=== PATIENT | female | born 1995 | race American Indian/Alaskan Native ===

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

== ENCOUNTER 2020-06-21 09:03 | Inpatient (IN) | payer MEDICAID ==
--- NOTE | 2020-06-08 11:44 | History and Physical Report ---
History of Present Illness Date of examination: 06/08/20 Chief complaint: repeat c/s History of present illness: 24 yo at 39w1d, AKBAR 06/27/20, c/b prior c/s x 1, Hx LSIL pap presenting for scheduled repeat c/s. Denies labor complaints or PIH symptoms. +FM. 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) Family/Genetic History: none Social history: no significant social history - Obstetrical History Expected Date of Delivery: 06/27/20 Actual Gestation: 37 Week(s) 2 Day(s) : 3 Para: 1 Hx # Term Pregnancies: 1 Spontaneous Abortions: 1 Number of Living Children: 1 Medications and Allergies Allergies Allergy/AdvReac Type Severity Reaction Status Date / Time Unable to Assess Allergy Unverified 08/23/16 05:22 Review of Systems All systems: negative (expect HPI) - Physical Exam Abdomen: Positive: normal appearance, normal bowel sounds Uterus: Positive: enlarged (gravid) - Obstetrical FHR: category 1 Uterine Contraction Monitor Mode: External Uterine Contraction Pattern: Absent Results All other labs normal. Assessment and Plan - Patient Problems (1) H/O: Status: Acute Plan to address problem: To OR for repeat section --Consented in the chart --Questions solicited and answered --GBS neg
[~2020-06-21 09:03] MED LIST: FAMOTIDINE 20 MG/2 ML INJ IV SCH
[2020-06-21] MEDS ORDERED: ceFAZolin/Water 2 GM/20 ML 2 GM/20 ML SYRINGE IV NR ×2 (09:30→12:00)
[2020-06-21] MEDS ORDERED: LACTATED RINGERS 1,000 ML IV SCH ×2 (09:30→11:30)
[2020-06-21] MEDS ORDERED: METOCLOPRAMIDE 10 MG/2 ML INJ IV SCH ×2 (09:30→12:19)
[2020-06-21] MEDS ORDERED: OXYTOCIN DRIP 30 UNITS/500 ML BAG IV SCH ×3 (09:30→13:00)
[2020-06-21] MEDS ORDERED: BICITRA ORAL LIQD 30ML PO SCH ×2 (09:30→11:19)
--- NOTE | 2020-06-21 10:23 | Anesthesia Consultation ---
Anesthesia Consult and Med Hx Date of service: 06/21/20 - Airway Anesthetic Teeth Evaluation: Good (some uneven teeth on the bottom) ROM Head & Neck: Adequate Mental/Hyoid Distance: Adequate Mallampati Class: Class II Intubation Access Assessment: Probably Good - Pre-Operative Health Status ASA Pre-Surgery Classification: ASA2 Proposed Anesthetic Plan: Epidural, Spinal
--- NOTE | 2020-06-21 10:23 | Anesthesia Day of Surgery ---
Anesthesia Day of Surgery - Day of Surgery Patient Examined: Yes Patient H&P Reviewed: Yes Patient is NPO: Yes
[2020-06-21 10:29] LABS: Basophils % (Auto) 0.3 % (0.0-1.8); Eosinophils % (Auto) 0.6 % (0.0-4.3); Hematocrit 33.9 % (30.3-42.9); Hemoglobin 11.7 gm/dl (10.1-14.3); Lymphocytes # (Auto) 1.8 K/mm3 (1.2-5.4); Lymphocytes % (Auto) 34.5 % (13.4-35.0); Mean Corpuscular HGB Conc 35 % (30-34); Mean Corpuscular Volume 88 fl (79-97); Monocytes # (Auto) 0.3 K/mm3 (0.0-0.8); Monocytes % (Auto) 5.9 % (0.0-7.3); Platelet Count 160 K/mm3 (140-440); Red Blood Count 3.87 M/mm3 (3.65-5.03); Red Cell Distribution Width 14.2 % (13.2-15.2)
[2020-06-21] MEDS ORDERED: ONDANSETRON 4 MG/2 ML INJ IV PRN (11:00)
[2020-06-21] MEDS ORDERED: HYDROmorphone 1 MG/1 ML INJ IV PRN (11:00)
[2020-06-21] MEDS ORDERED: PROMETHAZINE 25 MG TAB PO PRN (11:00)
[2020-06-21] MEDS ORDERED: PROMETHAZINE 25 MG RECT SUPP PR PRN (11:00)
[2020-06-21] MEDS ORDERED: NALOXONE 0.4 MG/1 ML INJ IV PRN ×2 (11:00→12:49)
[2020-06-21] MEDS ORDERED: FAMOTIDINE 20 MG/2 ML INJ IV SCH (11:19)
--- NOTE | 2020-06-21 11:26 | History and Physical Report ---
History of Present Illness Date of examination: 06/21/20 Date of admission: 06/21/20 09:03 Chief complaint: HERE FOR REPEAT C/S. History of present illness: The patient is a 24-year-old -[place] female who is a 3 para 1-0-1-1. Last menstrual period 10/04/2019 EDC 06/27/2020 she has received the flu vaccine her GBS is negative on antibiotics of breast for the past S improve she does have a history of low-grade AMY on Pap she had a previous section for distress. She has had at least obtain visits at office. Her blood type is A+ antibody screen was negative hematocrit was 37.6% rubella was immune Pap smear was ill AMY hepatitis B was negative HIV was negative varicella was immune platelet was 221,000 vitamin D was 240 Chlamydia and gonorrhea tests were negative he had ultrasound done at 17 weeks start Keppra screen was negative cystic fibrosis test was negative he had a repeat ultrasound at 21.1 weeks with Glucola screen was normal her repeat chlamydia at 36 weeks was negative repeat GC was also negative and her group B strep test was negative trichomonas test was negative she has been taking Keflex Zofran vitamin pills and promethazine as needed Past History Past Medical History: no pertinent history 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: section (x1), 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) Family/Genetic History: none, diabetes Social history: single - Obstetrical History Expected Date of Delivery: 06/27/20 Actual Gestation: 39 Week(s) 1 Day(s) : 3 Para: 1 Hx # Term Pregnancies: 1 Number of Pregnancies: 0 Spontaneous Abortions: 1 Induced : 0 Medications and Allergies Allergies Allergy/AdvReac Type Severity Reaction Status Date / Time No Known Allergies Allergy Unverified 06/21/20 10:49 Active Meds: Active Medications Citric Acid/Sodium Citrate (Bicitra Oral Liqd 30ml) 30 ml PO ONCE ANICETO Stop: 06/21/20 17:00 Famotidine (Famotidine 20 Mg/2 Ml Inj) 20 mg IV ONCE ANICETO Stop: 06/21/20 18:00 Hydromorphone HCl (Hydromorphone 1 Mg/1 Ml Inj) 0.5 mg IV Q4H PRN PRN Reason: breakthrough pain > 7/10 Lactated Ringer's (Lactated Ringers) 1,000 mls @ 2,250 mls/hr IV PREOP ANICETO Stop: 06/22/20 09:57 Oxytocin/Sodium Chloride (Pitocin/Ns 30 Unit/500ml) 30 units in 500 mls @ 0 mls/hr IV TITR ANICETO; Protocol Cefazolin Sodium (Ancef/Sterile Water 2 Gm/20 Ml) 2 gm in 20 mls @ 80 mls/hr IV PREOP NR; Protocol Stop: 06/21/20 17:00 Metoclopramide HCl (Metoclopramide 10 Mg/2 Ml Inj) 10 mg IV ONCE ANICETO Stop: 06/21/20 17:00 Naloxone HCl (Naloxone 0.4 Mg/1 Ml Inj) 0.2 mg IV Q2MIN PRN PRN Reason: Res Rate </= 8 or 02 SAT < 92% Ondansetron HCl (Ondansetron 4 Mg/2 Ml Inj) 4 mg IV Q8H PRN PRN Reason: Nausea And Vomiting Promethazine HCl (Promethazine 25 Mg Tab) 25 mg PO Q6H PRN PRN Reason: Nausea And Vomiting Promethazine HCl (Promethazine 25 Mg Rect Supp) 25 mg RI Q6H PRN PRN Reason: Nausea And Vomiting Sodium Chloride (Sodium Chloride 0.9% 10 Ml Flush Syringe) 10 ml IV PRN PRN PRN Reason: flush Review of Systems All systems: negative - Vital Signs Vital signs: Vital Signs Pulse BP 90 107/66 06/21/20 09:33 06/21/20 09:33 Temp Pulse Resp BP Pulse Ox 98.3 F 102 H 18 107/66 98 06/21/20 09:34 06/21/20 11:16 06/21/20 09:34 06/21/20 09:33 06/21/20 11:16 - Physical Exam Breasts: Cardiovascular: Regular rate, Normal S1, Normal S2 Lungs: Positive: Clear to auscultation Abdomen: Positive: normal appearance, soft, normal bowel sounds. Negative: distention, tenderness Genitourinary (Female): Positive: normal external genitalia Vulva: both: normal Vagina: Positive: normal moisture. Negative: discharge Cervix: Negative: lesion, discharge Uterus: Positive: normal size, enlarged, normal contour Adnexa: both: normal Anus/Rectum: Positive: normal perianal skin, heme negative. Negative: rectal mass, hemorrhoids Extremities: Deep Tendon Reflex Grade: Dull/Diminished +1 - Obstetrical FHR: auscultation normal, category 1 Uterine Contraction Monitor Mode: External Uterine Contraction Pattern: Absent Results Result Diagrams: 06/21/20 09:59 Abnormal lab results 06/21/20 Range/Units 09:59 MCHC 35 H (30-34) % All other labs normal. Assessment and Plan Previous section at 39 weeks. Plan repeat low transverse section.
[2020-06-21] MEDS ORDERED: PHENYLEPHRINE/NS 1,000 MCG/10 ML SYRINGE (OR USE) IV ONE (12:30)
[2020-06-21] MEDS ORDERED: SODIUM CHLORIDE 0.9% 100 ML ONE (12:37)
[2020-06-21] MEDS ORDERED: dexAMETHasone 20 MG/5 ML VIAL ONE (12:37)
[2020-06-21] MEDS ORDERED: BUPIVACAINE/PF (0.5%) 5 MG/1 ML 30 ML VIAL INFILTRATI ONE (12:37)
[2020-06-21] MEDS ORDERED: ONDANSETRON 4 MG/2 ML INJ ONE (12:48)
[2020-06-21] MEDS ORDERED: LANOLIN/ZINC/DIMETHICONE (LANSINOH) 7 GM TP PRN (12:49)
[2020-06-21] MEDS ORDERED: WITCH HAZEL/ GLYCERIN PAD TP PRN (12:49)
--- NOTE | 2020-06-21 12:57 | Procedure Note ---
Date of procedure: 06/21/20 Pre-op diagnosis: previous c/s Post-op diagnosis: same Procedure: The patient was taken to the operatory and given a spinal anesthetic adequate enough for the procedure she had indwelling Garcia catheter placed. She was then prepped and draped in the usual manner. Because she had a keloid scar we started our initial incision circumferentially around the keloid scar to remove the keloid scar over her skin. Subsequently we entered the abdominal cavity a natomically vesicouterine peritoneum was repaired removed with Metzenbaums and scissors a low transverse incision made in lower uterine segment with a scalpel because the tightness of the incision we extended the uterine incision with scissors and extended the rectus muscles with scissors subsequently we delivered the vertex with the help of a [place]wi. The fetus was removed from the uterus oropharynx was suctioned fetus passed off table in stable cord was doubly clamped fetus passed off the table to the nurse in stable condition cord blood was obtained cord blood was not obtained excuse me. Uterus was cleaned debris membranes and tissue uterus and delivered extra-abdominal uterus and repaired in 2 layers first layer was in the deep myometrium is a running locking #1 Vicryl subsequently the superficial layer of the myometrium was repaired with the same suture using running locked #1 Vicryl tubes and ovaries appeared to be normal using drop back into the abdominal cavity. Gutters was cleaned of debris membranes and tissue and blood all instruments removed from abdominal cavity instrument count needle lap and sponge count was correct anterior abdominal peritoneum was repaired running 2-0 chromic the rectus muscles were reapproximated using running locking #2-0 chromic. The fascia repaired with a running locking #0 Vicryl subcutaneous is repaired with running 2-0 Vicryl the skin was repaired with a Isaias needle subcuticular 4-0 Vicryl in a continuous fashion this area was hemostatic and it was a nice reapproximation. We then placed Dermabond over the incision. The patient tolerated procedure well she was then returned to recovery room in stable condition end of operative note on the patient. Anesthesia: spinal Estimated blood loss: other (600) Pathology: none Specimen disposition: discarded Condition: stable Disposition: PACU
--- NOTE | 2020-06-21 13:27 | Progress Note ---
Spinal Anesthesia Block - Spinal Anesthesia Block Start Time: 11:45 Stop Time: 11:50 Performed by:: RICO TRINIDAD Procedure: Patient IDed, H&P reviewed, all questions and concerns were answered, and consent was signed. Timeout was performed at bedside. Patient in sitting position. Sterile prep and drape was performed. [3] ml of 1% lidocaine skin wheal at L[3]- L [4]. Needle introducer advanced. 25 gauge spinal needle advanced. Clear, free flowing CSF. negative blood, negative paresthesia. Spinal dose given. All needles removed. Patient tolerated procedure.
--- NOTE | 2020-06-21 13:29 | Progress Note ---
Subjective Date of service: 06/21/20 Objective - Constitutional Vitals: Vital Signs - 12hr 06/21/20 06/21/20 06/21/20 09:33 09:34 09:35 Temperature 98.3 F Pulse Rate 90 100 H Respiratory 18 Rate Blood Pressure 107/66 O2 Sat by Pulse 97 Oximetry 06/21/20 06/21/20 06/21/20 09:40 09:45 09:50 Temperature Pulse Rate 93 H 93 H 86 Respiratory Rate Blood Pressure O2 Sat by Pulse 97 98 98 Oximetry 06/21/20 06/21/20 06/21/20 09:55 10:00 10:05 Temperature Pulse Rate 81 90 100 H Respiratory Rate Blood Pressure O2 Sat by Pulse 98 99 98 Oximetry 06/21/20 06/21/20 06/21/20 10:10 10:16 10:21 Temperature Pulse Rate 90 93 H 100 H Respiratory Rate Blood Pressure O2 Sat by Pulse 98 98 97 Oximetry 06/21/20 06/21/20 06/21/20 10:26 10:31 10:36 Temperature Pulse Rate 80 96 H 91 H Respiratory Rate Blood Pressure O2 Sat by Pulse 98 97 98 Oximetry 06/21/20 06/21/20 06/21/20 10:41 10:46 10:51 Temperature Pulse Rate 95 H 95 H 94 H Respiratory Rate Blood Pressure O2 Sat by Pulse 98 98 98 Oximetry 06/21/20 06/21/20 06/21/20 10:56 11:01 11:06 Temperature Pulse Rate 89 98 H 89 Respiratory Rate Blood Pressure O2 Sat by Pulse 98 97 98 Oximetry 06/21/20 06/21/20 06/21/20 11:11 11:16 11:21 Temperature Pulse Rate 82 102 H 99 H Respiratory Rate Blood Pressure O2 Sat by Pulse 98 98 97 Oximetry 06/21/20 06/21/20 11:26 12:36 Temperature Pulse Rate 94 H 105 H Respiratory Rate Blood Pressure 90/59 O2 Sat by Pulse 97 Oximetry - Labs CBC & Chem 7: 06/22/20 01:37 Labs: Abnormal lab results 06/21/20 Range/Units 09:59 MCHC 35 H (30-34) % Regional Anesthesia Block - Regional Anesthesia Block Start Time: 13:18 Stop Time: 13:22 Performed By:: CHARISSA GOMEZ Procedure: Patient consented for TAP block for post surgical pain management. Patient identified, monitors placed, and time out performed. TAP identified bilaterally via ultrasound. Skin prepped bilaterally with [chlorhexidine] and [22g stimuplex] needle advanced to the TAP. [Marcaine 0.22% 35ml] injected under ultrasound guidance on the [left] side. [Marcaine 0.22% 35ml] injected under ultrasound guidance on the [right] side. Negative aspiration every 5mL, No change in heart rate or rhythm. Patient tolerated the procedure well. No apparent complications seen.
[2020-06-21 17:51] LABS: Basophils % (Auto) 0.1 % (0.0-1.8); Hematocrit 32.3 % (30.3-42.9); Hemoglobin 11.1 gm/dl (10.1-14.3); Lymphocytes # (Auto) 0.9 K/mm3 (1.2-5.4); Lymphocytes % (Auto) 8.7 % (13.4-35.0); Mean Corpuscular HGB Conc 34 % (30-34); Mean Corpuscular Volume 89 fl (79-97); Monocytes # (Auto) 0.3 K/mm3 (0.0-0.8); Monocytes % (Auto) 2.3 % (0.0-7.3); Platelet Count 157 K/mm3 (140-440); Red Blood Count 3.62 M/mm3 (3.65-5.03); Red Cell Distribution Width 14.5 % (13.2-15.2)
[2020-06-21] MEDS ORDERED: IBUPROFEN 600 MG TAB PO SCH (18:00)
[2020-06-21] MEDS: KETOROLAC 30 MG/1 ML INJ IV PRN (18:15)
[2020-06-21] MEDS: oxyCODONE /ACETAMINOPHEN 5-325MG TAB PO PRN (21:41)
[2020-06-22 01:53] LABS: Hematocrit 30.4 % (30.3-42.9); Hemoglobin 10.2 gm/dl (10.1-14.3)
[2020-06-22] MEDS: KETOROLAC 30 MG/1 ML INJ IV PRN ×2 (02:23→10:05)
[2020-06-22] MEDS: oxyCODONE /ACETAMINOPHEN 5-325MG TAB PO PRN ×3 (05:08→18:27)
--- NOTE | 2020-06-22 06:54 | Post Anesthesia Evaluation ---
- Post Anesthesia Evaluation Patient Participated: Yes Airway Patent: Yes Stable Respiratory Function: Yes Nausea/Vomiting: No Temp > 96.8F: Yes Pain Manageable: Yes Adequeate Hydration: Yes Anesthesia Complications: Yes Block Receding Appropriately: No Patient on Ventilator: Yes
--- NOTE | 2020-06-22 12:34 | Progress Note ---
Assessment and Plan A: /postop day 1 S/P repeat LTCS. Anemia. P: Supplement with iron. Encouraged ambulation. Continue routine postop/ care. Subjective - Subjective Date of service: 06/22/20 Principal diagnosis: /postop day 1 S/P repeat LTCS Patient reports: appetite normal, voiding normally, pain well controlled, flatus, ambulating normally, no dizzy ambulation, no nauseated : doing well Objective - Vital Signs Latest vital signs: Vital Signs Temp Pulse Resp BP BP Pulse Ox 06/22/20 12:27 98.4 F 76 18 106/78 99 06/22/20 10:05 16 06/22/20 08:43 98.2 F 62 18 92/55 98 06/22/20 05:08 18 06/22/20 05:00 98.0 F 59 L 18 96/65 98 06/22/20 02:23 18 06/22/20 01:58 97.9 F 67 18 100/57 98 06/21/20 21:41 18 06/21/20 20:54 98.3 F 71 18 105/64 97 06/21/20 18:15 20 06/21/20 16:19 20 06/21/20 14:15 98.1 F 81 18 133/77 99 06/21/20 14:10 98.0 F 107 H 17 107/69 98 06/21/20 14:05 76 17 107/69 98 06/21/20 13:55 99 H 17 107/69 98 06/21/20 13:40 97.5 F L 97 H 17 115/64 98 06/21/20 13:24 107 H 16 91/66 98 06/21/20 13:19 101 H 16 111/44 98 06/21/20 13:14 98.0 F 104 H 16 109/52 98 06/21/20 12:36 105 H 90/59 Intake and Output 06/21/20 06/22/20 06/22/20 23:59 07:59 15:59 Intake Total 440 200 Output Total 4900 1050 Balance -4460 -850 Intake: Oral 440 200 Output: Urine 4900 1050 Indwelling 2700 400 Indwelling Catheter 2200 400 Void 250 Other: Total, Intake Amount 200 200 Total, Output Amount 400 250 # Voids Void 1 - Exam Cardiovascular: Present: Regular rate Lungs: Present: Clear to auscultation Abdomen: Present: normal appearance, soft, normal bowel sounds. Absent: distention, tenderness, guarding, rigidity Uterus: Present: normal, firm, fundal height below umbilicus. Absent: bogginess, tenderness Extremities: Present: normal. Absent: tenderness - Labs Labs: Abnormal lab results 06/21/20 Range/Units 17:14 RBC 3.62 L (3.65-5.03) M/mm3 Lymph % (Auto) 8.7 L (13.4-35.0) % Lymph # (Auto) 0.9 L (1.2-5.4) K/mm3 Seg Neutrophils % 88.9 H (40.0-70.0) % Seg Neutrophils # 9.6 H (1.8-7.7) K/mm3
[2020-06-22] MEDS: FERROUS SULFATE 325 MG TAB PO SCH (12:58)
[2020-06-23] MEDS: oxyCODONE /ACETAMINOPHEN 5-325MG TAB PO PRN ×4 (00:07→20:03)
[2020-06-23] MEDS ORDERED: LACTATED RINGERS 200 ML IV ONE (07:04)
--- NOTE | 2020-06-23 07:09 | Progress Note ---
Assessment and Plan A: /postop day 2 S/P repeat LTCS. Anemia. P: Continue oral iron supplementation. Encouraged ambulation. Anticipate discharge home tomorrow if patient continues to do well. Subjective - Subjective Date of service: 06/23/20 Principal diagnosis: /postop day 2 S/P repeat LTCS Patient reports: appetite normal, voiding normally, pain well controlled, flatus, ambulating normally, no dizzy ambulation, no nauseated [place]: doing well Objective - Vital Signs Latest vital signs: Vital Signs Temp Pulse Resp BP BP Pulse Ox 06/23/20 06:04 18 06/23/20 01:02 98.2 F 91 H 20 99/46 97 06/23/20 00:07 18 06/22/20 18:27 18 06/22/20 16:35 98.6 F 68 18 92/47 100 06/22/20 12:58 16 06/22/20 12:27 98.4 F 76 18 106/78 99 06/22/20 10:05 16 06/22/20 08:43 98.2 F 62 18 92/55 98 Intake and Output 06/22/20 06/22/20 06/23/20 15:59 23:59 07:59 Intake Total 240 320 Balance 240 320 Intake: Oral 240 320 Other: Total, Intake Amount 240 200 # Voids Void 3 1 - Exam Cardiovascular: Present: Regular rate Abdomen: Present: normal appearance, soft, normal bowel sounds. Absent: distention, tenderness, guarding, rigidity Uterus: Present: normal, firm, fundal height below umbilicus. Absent: bogginess, tenderness Extremities: Present: normal. Absent: tenderness Incision: Present: dry, dressed
[2020-06-23] MEDS: IBUPROFEN 600 MG TAB PO PRN ×2 (10:43→16:33)
[2020-06-23] MEDS: FERROUS SULFATE 325 MG TAB PO SCH (10:43)
[2020-06-24] MEDS: IBUPROFEN 600 MG TAB PO PRN ×2 (00:53→12:55)
[2020-06-24] MEDS: oxyCODONE /ACETAMINOPHEN 5-325MG TAB PO PRN (05:39)
--- NOTE | 2020-06-24 10:52 | Progress Note ---
Assessment and Plan A: /postop day 3 S/P repeat LTCS. Anemia. P: Discharge patient home today. Discussed with patient /postop discharge instructions and warning signs. Advised patient to continue taking her vitamins and iron supplements at home. Care of incision and activity restrictions discussed with patient. Advised patient to avoid intercourse, lifting, stair climbing, driving, tub baths (patient may take showers). Advised patient to follow up at [facility] office in 1 week. Patient voiced understanding of all instructions. Subjective - Subjective Date of service: 06/24/20 Principal diagnosis: /postop day 3 S/P repeat LTCS Interval history: Patient requests discharge home today. Doing well. No complaints. Patient reports: appetite normal, voiding normally, pain well controlled, flatus, ambulating normally, no dizzy ambulation, no nauseated [place]: doing well, nursing well Objective - Vital Signs Latest vital signs: Vital Signs Temp Pulse Resp BP BP Pulse Ox 06/24/20 10:43 98.0 F 77 18 100/58 100 06/24/20 08:50 98.2 F 69 18 84/49 98 06/24/20 00:56 98.0 F 90 20 101/63 97 06/23/20 16:33 20 06/23/20 16:14 98.5 F 101 H 18 99/62 99 Intake and Output 06/23/20 06/24/20 06/24/20 23:59 07:59 15:59 Intake Total 480 240 240 Balance 480 240 240 Intake: Oral 480 240 240 Other: Total, Intake Amount 240 240 240 # Voids Void 1 1 1 - Exam Cardiovascular: Present: Regular rate Lungs: Present: Clear to auscultation Abdomen: Present: normal appearance, soft, normal bowel sounds. Absent: distention, tenderness, guarding, rigidity Uterus: Present: normal, firm, fundal height below umbilicus. Absent: bogginess, tenderness Extremities: Present: normal. Absent: tenderness, edema Incision: Present: normal, dry, intact
--- NOTE | 2020-06-24 10:54 | Discharge Summary ---
Providers - Providers Date of Admission: 06/21/20 09:03 Date of discharge: 06/24/20 Attending physician: JYOTSNA ALVAREZ MD Primary care physician: [employer] Hospitalization Reason for admission: section Delivery: Procedure: repeat low transverse Incision: normal, dry, intact Other procedures: none complications: none Discharge diagnosis: IUP at term delivered [place] baby: male Pertinent studies: Labs. Hospital course: Normal hospital course. Condition at discharge: Good Disposition: DC-01 TO HOME OR SELFCARE - Discharge Diagnoses (1) Term delivered Status: Acute (2) Anemia Status: Acute Plan - Discharge Medications Prescriptions: HYDROcodone/APAP 5-325 [[place] 5/325] 1 each PO Q4HR PRN 7 Days #20 tablet PRN Reason: Pain - Provider Discharge Summary Activity: routine, no sex for 6 weeks, no heavy lifting 4 weeks, no strenuous exercise Diet: routine Instructions: routine Additional instructions: Continue taking your vitamins and iron supplements at home. Call your doctor immediately for: * Fever > 100.5 * Heavy vaginal bleeding ( >1 pad per hour) * Severe persistent headache * Shortness of breath * Reddened, hot, painful area to leg or breast * Drainage or odor from incision. * Keep incision clean and dry at all times and follow doctor's instructions regarding bathing/showering - Follow up plan Follow up: JYOTSNA ALVAREZ MD [Staff Physician] - 7 Days
[2020-06-24 15:18] VITALS: BP 102/66
== END 2020-06-24 15:20 | disposition home or self-care (01) | DRG 766 ==
LOC: APU 09:03 → OB 14:46
PROC: 10D00Z1 Extraction of Products of Conception, Low, Open Approach (ICD-10-PCS; principal; 2020-06-21)
DX: O34.211 Maternal care for low transverse scar from previous cesarean delivery (principal); Z37.0 Single live birth; Z3A.39 39 weeks gestation of pregnancy; O99.02 Anemia complicating childbirth; Z20.822 Contact with and (suspected) exposure to COVID-19; D64.9 Anemia, unspecified
CPT/HCPCS: 36415; 85014; 85018; 85025; 86850; 86900; 86901; G0378; A6250; C1765; J1100; J1170; J1885; J2370; J2405; J2765; J3490; J7120; U0003